=== PATIENT | female | born 1955 | race Caucasian/White ===

== ENCOUNTER 2018-11-06 08:50 | Outpatient (CLI) | payer OTHER ==
[2018-11-06 10:00] LABS: BASOPHILS # (AUTO) 0.1 X10'3 (0-0.2); EOSINOPHILS # (AUTO) 0.2 X10'3 (0-0.9); EOSINOPHILS % (AUTO) 4.1 % (0-6); HEMATOCRIT 39.4 % (35.0-45.0); HEMOGLOBIN 13.4 g/dl (12.0-16.0); LYMPHOCYTES # (AUTO) 1.7 X10'3 (1.1-4.8); LYMPHOCYTES % (AUTO) 31.5 % (21-51); MEAN CORPUSCULAR VOLUME 99.9 FL (78-98); MEAN PLATELET VOLUME 8.7 FL (7.4-10.4); MONOCYTES # (AUTO) 0.3 X10'3 (0-0.9); NEUTROPHILS # (AUTO) 3.1 X10'3 (1.8-7.7); NEUTROPHILS % (AUTO) 57.4 % (42-75); PLATELET COUNT 264 X10'3 (140-440); RED BLOOD COUNT 3.94 X10'6 (4.20-5.60); RED CELL DISTRIBUTION WIDTH 12.4 % (11.5-14.5); WHITE BLOOD COUNT 5.4 X10'3 (4.5-11.0)
[2018-11-06 10:20] LABS: ALANINE AMINOTRANSFERASE 37 U/L (12-78); ALBUMIN 4.1 G/DL (3.4-5.0); ALBUMIN/GLOBULIN RATIO 1.3 (1.1-1.5); ALKALINE PHOSPHATASE 42 IU/L (46-116); ANION GAP 8 (8-16); ASPARTATE AMINO TRANSFERASE 24 U/L (10-37); BILIRUBIN,TOTAL 0.3 MG/DL (0.1-1.0); BLOOD UREA NITROGEN 22 MG/DL (7-18); CALCIUM 8.9 MG/DL (8.5-10.1); CHLORIDE 105 MMOL/L (99-107); CHOLESTEROL 179 MG/DL (0-200); CREATININE 0.71 MG/DL (0.40-0.90); GLUCOSE 102 MG/DL (70-104); LDL CHOLESTEROL 68 MG/DL (50-100); POTASSIUM 4.2 MMOL/L (3.5-5.1); SODIUM 142 MMOL/L (135-145); TOTAL CARBON DIOXIDE 29.2 MMOL/L (24-32); TOTAL PROTEIN 7.2 G/DL (6.4-8.2); TRIGLYCERIDES 65 MG/DL (20-135); eGFR 84 ML/MIN
[2018-11-06 11:39] LABS: CHOL/HDL RATIO 1.8 (0.00-4.99); HDL CHOLESTEROL 97 MG/DL (35-60)
[2018-11-07 05:19] LABS: THIIODOTHRONINE, FREE, SERUM 2.7 pg/mL (2.0-4.4); THYROID PEROXIDASE AB 10 IU/mL (0-34)
[2018-11-07 14:18] LABS: ESTRADIOL 33.7 pg/mL (.); PROGESTERONE 1.2 ng/mL (.)
[2018-11-07 15:09] LABS: ANTINUCLEAR ANTIBODIES Negative (Negative); ANTITHYROGLOBULIN AB <1.0 IU/mL (0.0-0.9)
[2018-11-08 09:19] LABS: VITAMIN D, 1,25 DIHYDROXY 48.6 pg/mL (19.9-79.3)
[2018-11-09 13:11] LABS: ESTRONE, SERUM 179 pg/mL (.)
== END 2018-11-06 23:59 | disposition home or self-care (01) ==
LOC: LAB 08:50
PROVIDERS: ATTEND Obstetrics & Gynecology
DX: E03.9 Hypothyroidism, unspecified (principal)
CPT/HCPCS: 36415; 80053; 80061; 82607; 82652; 82670; 82679; 82746; 84144; 84402; 84403; 84432; 84439; 84443; 84481; 85025; 85651; 86038; 86376; 86800

== ENCOUNTER 2019-12-18 14:07 | Day surgery (SDC) | payer OTHER ==
[~2019-12-18] VITALS: Ht 170.2 cm; Wt 69.4 kg
[~2019-12-18 14:07] MED LIST: ALPR1TAB7 PO; ESTR2TAB6 PO; HYDR-3972 PO; LACT1CAP26 PO; LINE600T14 PO; OXYC-150 PO; PROG200C11 PO; THYR30TA2 PO; VALA500T41 PO; ZOLP5TAB8 PO; [UNRECOGNIZED DRUG - CODE] PO
[2019-12-18 14:35] VITALS: BP 127/72
[2019-12-18] MEDS ORDERED: DALBAVANCIN IV ONE (14:40)
[2019-12-18] MEDS ORDERED: DEXTROSE 5% IV ONE (14:40)
[2019-12-18] MEDS ORDERED: WATER IV ONE (14:40)
[2019-12-18 14:50] LABS: BASOPHILS % (AUTO) 0.6 % (0-1); EOSINOPHILS # (AUTO) 0.1 X10'3 (0-0.9); EOSINOPHILS % (AUTO) 2.4 % (0-6); HEMATOCRIT 34.3 % (35.0-45.0); HEMOGLOBIN 11.5 g/dl (12.0-16.0); LYMPHOCYTES # (AUTO) 2.4 X10'3 (1.1-4.8); LYMPHOCYTES % (AUTO) 40.7 % (21-51); MEAN CORPUSCULAR HEMOGLOBIN 33.3 PG (27.0-31.0); MEAN CORPUSCULAR HGB CONC 33.6 g/dL (33.0-36.5); MEAN PLATELET VOLUME 8.4 FL (7.4-10.4); MONOCYTES # (AUTO) 0.4 X10'3 (0-0.9); MONOCYTES % (AUTO) 6.1 % (2-12); NEUTROPHILS # (AUTO) 2.9 X10'3 (1.8-7.7); NEUTROPHILS % (AUTO) 50.2 % (42-75); PLATELET COUNT 254 X10'3 (140-440); RED BLOOD COUNT 3.47 X10'6 (4.20-5.60); RED CELL DISTRIBUTION WIDTH 13.1 % (11.5-14.5); WHITE BLOOD COUNT 5.8 X10'3 (4.5-11.0)
[2019-12-18 14:55] LABS: ALBUMIN 3.7 G/DL (3.4-5.0); ANION GAP 4 (8-16); BLOOD UREA NITROGEN 17 MG/DL (7-18); BUN/CREATININE RATIO 18.9 (6.6-38.0); CALCIUM 8.8 MG/DL (8.5-10.1); CHLORIDE 108 MMOL/L (99-107); GLUCOSE 88 MG/DL (70-104); POTASSIUM 3.6 MMOL/L (3.5-5.1); SODIUM 143 MMOL/L (135-145); TOTAL CARBON DIOXIDE 30.6 MMOL/L (24-32); eGFR 63 ML/MIN
[2019-12-18] MEDS ORDERED: AMOX-419 PO (15:32)
--- NOTE | 2019-12-18 16:00 | NUR ---
Patient left in stable condition, vitals stable, IV infusion done, feels well, voided, and walked out with her friend, Dr. Marques.
== END 2019-12-18 16:00 | disposition home or self-care (01) ==
LOC: SSTAY O 14:07
PROVIDERS: ATTEND Internal Medicine Infectious Disease
DX: L03.313 Cellulitis of chest wall (principal)
CPT/HCPCS: 36415; 80048; 85025; 96365; J0875; J7060

== ENCOUNTER 2021-05-19 09:33 | Emergency (ER) | payer OTHER ==
[~2021-05-19] VITALS: Ht 170.2 cm; Wt 60.0 kg
[~2021-05-19 09:33] MED LIST changes: +AMOX-419 PO; -LINE600T14 PO; -OXYC-150 PO
[2021-05-19] MEDS ORDERED: morphine 4 MG/ML inj SYRINge IM ONE (09:55)
[2021-05-19] MEDS ORDERED: ondansetron 4mg rapidly disintigrating tab PO ONE (09:55)
[2021-05-19] MEDS ORDERED: ORPH100T2 PO (09:57)
[2021-05-19 10:00] VITALS: BP 114/71
== END 2021-05-20 08:11 | disposition home or self-care (01) ==
LOC: ER 09:34
DX: M54.42 Lumbago with sciatica, left side (principal); G43.909 Migraine, unspecified, not intractable, without status migrainosus; Z72.89 Other problems related to lifestyle; Z79.2 Long term (current) use of antibiotics; Z79.899 Other long term (current) drug therapy
CPT/HCPCS: 96372; 99283; J2270